=== PATIENT | female | born 1990 | race American Indian/Alaskan Native ===

== ENCOUNTER 2020-07-31 07:57 | Emergency (ER) | payer MEDICAID ==
[2020-07-31 08:25] VITALS: BP 130/73
--- NOTE | 2020-07-31 09:55 | Emergency Department Report ---
- General Chief Complaint: Upper Respiratory Infection Stated Complaint: FEVER 2 DAYS/WEAK Time Seen by Provider: 07/31/20 09:27 Source: patient Mode of arrival: Ambulatory Limitations: No Limitations - History of Present Illness Initial Comments: This very pleasant 29-year-old female presents the emergency department with chief complaint of cough, nasal congestion, sore throat, fatigue and a subjective fever over the past 2-3 days. She also reports some associated shortness of breath. She is currently 28 weeks . She denies any associated chest pain, nausea, vomiting, diarrhea, abdominal pain, loss of fluid or vaginal bleeding, lower extremity edema or pain. She denies any known past medical history, current medication use or known allergies to medications.. - Related Data Previous Rx's Medication Instructions Recorded Last Taken Type Amoxicillin/Potassium Clav 1 each PO BID #14 tablet 07/31/20 Unknown Rx [Augmentin 875-125 Tablet] ED Review of Systems ROS: Stated complaint: FEVER 2 DAYS/WEAK Other details as noted in HPI Comment: All other systems reviewed and negative Constitutional: see HPI, fever. denies: chills Eyes: denies: eye pain, eye discharge, vision change ENT: as per HPI, throat pain, congestion. denies: ear pain Respiratory: see HPI, cough. denies: shortness of breath, wheezing Cardiovascular: denies: chest pain, palpitations Endocrine: no symptoms reported Gastrointestinal: denies: abdominal pain, nausea, diarrhea Genitourinary: denies: urgency, dysuria, discharge Musculoskeletal: denies: back pain, joint swelling, arthralgia Skin: denies: rash, lesions Neurological: denies: headache, weakness, paresthesias Psychiatric: denies: anxiety, depression Hematological/Lymphatic: denies: easy bleeding, easy bruising ED Past Medical Hx - Past Medical History Previous Medical History?: No - Surgical History Past Surgical History?: Yes Additional Surgical History: Right leg - Social History Smoking Status: Never Smoker Substance Use Type: None - Medications Home Medications: Home Medications Medication Instructions Recorded Confirmed Last Taken Type Amoxicillin/Potassium Clav 1 each PO BID #14 tablet 07/31/20 Unknown Rx [Augmentin 875-125 Tablet] ED Physical Exam - General Limitations: No Limitations General appearance: alert, in no apparent distress - Head Head exam: Present: atraumatic, normocephalic - Eye Eye exam: Present: normal appearance, PERRL, EOMI Pupils: Present: normal accommodation - ENT ENT exam: Present: normal exam, normal orophraynx, mucous membranes moist, other (Mild erythema of the posterior pharynx, no tonsillar enlargement, no exudate, no peritonsillar bulging, retropharyngeal bulging or tongue elevation, there is tenderness to percussion over the frontal and maxillary sinuses bilaterally with hyperemia to the nasal turbinates). Absent: TM's normal bilaterally (Bilateral tympanic membrane erythema with a clear serous otitis effusion. No mastoid tenderness.) - Neck Neck exam: Present: normal inspection, full ROM. Absent: tenderness, meningismus - Respiratory Respiratory exam: Present: normal lung sounds bilaterally. Absent: respiratory distress, wheezes, rales, rhonchi, stridor, chest wall tenderness - Cardiovascular Cardiovascular Exam: Present: regular rate, normal rhythm, normal heart sounds. Absent: systolic murmur, diastolic murmur, rubs, gallop - GI/Abdominal GI/Abdominal exam: Present: soft, normal bowel sounds, mass (Uterus palpated above the umbilicus). Absent: distended, tenderness, guarding, rebound, rigid - Extremities Exam Extremities exam: Present: normal inspection, full ROM. Absent: tenderness, calf tenderness (No posterior calf tenderness, negative Homans' sign bilaterally) - Back Exam Back exam: Present: normal inspection, full ROM. Absent: tenderness, CVA tenderness (R), CVA tenderness (L) - Neurological Exam Neurological exam: Present: alert, oriented X3, CN II-XII intact, normal gait - Psychiatric Psychiatric exam: Present: normal affect, normal mood - Skin Skin exam: Present: warm, dry, intact, normal color. Absent: rash ED Course Vital Signs 07/31/20 08:23 Temperature 98.5 F Pulse Rate 119 H Respiratory 18 Rate Blood Pressure 130/73 O2 Sat by Pulse 98 Oximetry ED Medical Decision Making - Radiology Data Radiology results: report reviewed, image reviewed XRay Report Signed Patient: HYUN THORNTON MR#: [id number] : 1990 Acct:[id number] Age/Sex: 29 / F ADM Date: 07/31/20 Loc: ED Attending Dr: Ordering Physician: LINDSAY SOTO Date of Service: 07/31/20 Procedure(s): XR chest 1V ap Accession Number(s): [id number] cc: LINDSAY SOTO Fluoro Time In Minutes: CHEST 1 VIEW INDICATION: cough, fever, 28 wks . COMPARISON: None FINDINGS: Support devices: None. Heart: Within normal limits. Lungs/Pleura: No acute air space or interstitial disease. Additional findings: None. IMPRESSION: No acute findings. Signer Name: Xander An Jr, MD Signed: 07/31/2020 10:31 AM Workstation Name: [id number] Transcribed By: TTR Dictated By: XANDER AN JR, MD Electronically Authenticated By: XANDER AN JR, MD Signed Date/Time: 07/31/20 1031 - Medical Decision Making The patient's chest x-ray was clear. Exam is consistent with sinusitis. She had a negative Homans' sign bilaterally and a low Wells risk for PE. She was slightly tachycardic initially and I did educate her about her slight increased risk of PE during however there is no clinical signs of DVT on exam and no hypoxia with no chest pain or pleuritic pain making my suspicion for PE very low. Did offer work-up however she politely declined after understanding the risk of radiation exposure. I think the patient is very reasonable and if she develops any change or worsening symptoms she will return to emerge department. She verbalized understanding the diagnosis, treatment plan and follow-up instructions and all of her questions were answered. - Differential Diagnosis bronchitis, pneumonia, sinusitis Critical care attestation.: If time is entered above; I have spent that time in minutes in the direct care of this critically ill patient, excluding procedure time. ED Disposition Clinical Impression: Sinusitis Qualifiers: Sinusitis location: frontal Chronicity: acute Recurrence: non-recurrent Qualified Code(s): J01.10 - Acute frontal sinusitis, unspecified Disposition: DC-01 TO HOME OR SELFCARE Is pt being admited?: No Condition: Stable Instructions: Sinusitis, Adult, [id number] Prescriptions: Amoxicillin/Potassium Clav [Augmentin 875-125 Tablet] 1 each PO BID #14 tablet Referrals: KAI MYERS MD [Staff Physician] - 3-5 Days Time of Disposition: 10:59
--- NOTE | 2020-07-31 10:36 | XRay Report ---
CHEST 1 VIEW INDICATION: cough, fever, 28 wks . COMPARISON: None FINDINGS: Support devices: None. Heart: Within normal limits. Lungs/Pleura: No acute air space or interstitial disease. Additional findings: None. IMPRESSION: No acute findings. Signer Name: Xander An Jr, MD Signed: 07/31/2020 10:31 AM Workstation Name: [id number]
== END 2020-07-31 11:15 | disposition home or self-care (01) ==
LOC: ED 07:57
DX: J01.10 Acute frontal sinusitis, unspecified (principal)
CPT/HCPCS: 71045; 99283